=== PATIENT | male | born 1965 ===

== ENCOUNTER → 2023-11-30 00:48 | Outpatient (CLI) | payer MEDICAID, SELFPAY ==
--- NOTE | 2023-11-30 | ETT_ITS ---
APPROVED REPORT Exam: Exercise Treadmill Patient Location: Out-Patient Room/Bed: Stress Nurse: Estela Goetz RN and Mickey Manzano RN Ordering Provider:IRLANDA RHODES, Contact Number: [phone] BMI: 29.28 Baseline Rhythm: Sinus Rhythm. Indications: Other Forms of Angina Pectoris. Medical History Medical History: Exertional Chest Pain; Hyperlipidemia; Nonalcoholic Fatty Liver Disease; Depression. Cardiac Medications: Omeprazole; Sertraline; Tamsulosin. Allergies: Shrub and Tree Pollen; Yeast. Cardiac Risk Factors: Family Hx; Hyperlipidemia. Previous Cardiac Procedures: None. Pretest Chest Pain Characteristics: Pt. c/o of 4/10, intermittent ...but becoming more continuous, chest pain/burning. Pt.'s chest pain is reproducible when pt. presses on his chest. Exercise History: Indeterminate. Physical Disabilities: None. Lung Sounds: Clear bilaterally throughout, anterior and posterior. Heart Sounds: S1 and S2 auscultated. Stress Test Details Test: Exercise stress testing was performed using a Nigel protocol. Rest Stress HR Resting HR Supine: 66 bpm Max Heart Rate (APMHR): 161 bpm Resting HR Standin bpm Target HR (85% APMHR): 137 bpm Max HR Achieved: 164 bpm % of APMHR: 102 Recovery HR: 92 bpm HR response to stress: Normal HR response to stress. BP Resting BP Supine: 152/90 mmHg Resting BP Standin/90 mmHg Max BP: 220/50 mmHg Recovery BP: 136/60 mmHg BP response to stress: Abnormal hypertensive response to stress. ECG Resting ECG: Sinus Rhythm. Ectopy: None. Stress ECG: Sinus Tachycardia. ST Change: No significant ST segment changes noted. Arrhythmia: None. Recovery ECG: Sinus Rhythm. Recovery ST Change: No significant ST segment changes noted. Recovery Arrhythmia: None. Clinical Reason for Termination: Target HR Achieved, Fatigue, Chest pain/Anginal equivalent. Stress Symptoms: Generalized Fatigue; Pt. c/o 6/10 chest pain/burning. Exercise duration: 06 min48 sec Highest Stage Reached: Stage 2: 2.5 mph at 12% grade. Exercise capacity: 8.26 METs Angina Score: Non-Limiting Rate Pressure Product: [id number] Stress ECG Conclusion 1. Resting electrocardiogram was normal 2. Patient exercised on the Nigel protocol and completed a workload of 8.26 METS 3. Mildly hypertensive blood pressure response to exercise. Normal heart rate response to exercise. The patient achieved 100% of predicted heart rate for age 4. There was no electrocardiographic evidence of myocardial ischemia 5. There were no significant dysrhythmias Stress Test Summary STAGE Time (mins) Speed (mph) Grade (%) HR BP SpO2 SYMPTOMS METS Supine 66 152/90 95 Standing 76 140/90 1 3 1.7 10 126 180/60 4.5 2 6 2.5 12 152 190/64 Pt. c/o 6/10 chest pain/burning. 7 3 9 3.4 14 162 Pt. c/o 6/10 chest pain/burning. 10 1 min recovery 133 220/50 Pt. c/o 5-6/10 chest pain/burning. 3 min recovery 98 170/50 Pt. c/o 5/10 chest pain/burniing and states, I can feel my heart pounding. 6 min recovery 96 149/46 Pt. c/o 4/10 chest pain/burning. 9 min recovery 92 136/60 Pt. states that all symptoms are back to baseline. Pt. stated that his chest pain/burning was back to baseline and left the stress lab conversing pleasa ntly with nursing staff in no apparent distress.
== END ==
PROVIDERS: PCP Neuromusculoskeletal Medicine & OMM; Visit Provider Family Medicine
DX: I20.9 Angina pectoris, unspecified (principal)
CPT/HCPCS: 93017